=== PATIENT | female | born 1950 | race Caucasian/White ===

== ENCOUNTER 2023-10-18 16:07 | Inpatient (IN) | payer MEDICARE, SELFPAY ==
--- NOTE | ~2023-10-18 | XR_ITS ---
EXAMINATION: XR chest 2V DATE: 10/18/2023 16:44 INDICATION: Chest pain. TECHNIQUE: Frontal and lateral views of the chest were obtained. COMPARISON: Chest 2 views 08/28/2013, chest CT 12/05/2017 FINDINGS: There is a 13 mm nodule in left upper lobe, stable from 12/05/2017, likely benign. There is no pneumonia, pleural effusion, or pneumothorax. The heart size is normal. IMPRESSION: 1. No acute cardiopulmonary disease. Reviewed, dictated and finalized at location A. ATION CONSULTANT
--- NOTE | 2023-10-18 16:10 | ECG_ITS ---
Measurements Intervals [place] Rate: 70 P: 40 ME: 172 QRS: 33 QRSD: 85 T: 74 QT: 402 QTc: 434 Interpretive Statements SINUS RHYTHM VOLTAGE CRITERIA FOR LVH ANTEROSEPTAL INFARCT, AGE INDETERMINATE ABNORMAL ECG NO PREVIOUS ECG AVAILABLE FOR COMPARISON Electronically Signed On 10-18-2023 16:36:01 SHEET METAL FABRICATOR by Neil Felix D.O.
[2023-10-18 16:29] VITALS: BP 157/64; PULSE 68; RESP 18; TEMP 36.7; O2SAT 100
[2023-10-18 16:46] LABS: Basophils Absolute Auto 0.1 K/mm3 (0.0-0.1); Basophils Percent Auto 0.8 % (0.2-1.2); Eosinophils Absolute Auto 0.3 K/mm3 (0-0.3); Eosinophils Percent Auto 2.8 % (0-4.4); Hematocrit 44.3 % (37.0-47.0); Hemoglobin 14.6 g/dL (12.0-15.0); Immature Granulocyte Absolute 0.04 K/mm3 (0.00-0.031); Immature Granulocyte Percent A 0.4 % (0-0.5); Lymphocytes Percent Auto 16.7 % (18.3-44.2); Mean Corpuscular Hemoglobin 29.4 pg (26-34); Mean Corpuscular Volume 89.3 fl (80-100); Mean Platelet Volume 10.4 fl (7.4-10.4); Monocytes Absolute Auto 0.6 K/mm3 (0.1-0.6); Monocytes Percent Auto 6.8 % (2.6-8.5); Neutrophils Absolute Auto 6.5 K/mm3 (1.3-6.7); Neutrophils Percent Auto 72.5 % (45.5-73.1); Platelet Count Result 241 k/mm3 (150-375); Red Blood Count 4.96 M/mm3 (4.2-5.4); Red Cell Distribution Width 13.6 % (11.5-14.5)
[2023-10-18 16:56] LABS: Alanine Aminotransferase 12 U/L (6-35); Albumin Level 4.2 g/dL (3.5-5.1); Alkaline Phosphatase 73 U/L (38-126); Anion Gap 10 mmol/L (8-16); Aspartate Amino Transferase 19 U/L (14-36); Bilirubin,Total 0.5 mg/dL (0.2-1.3); Blood Urea Nitrogen 18 mg/dL (7-17); Calcium 9.7 mg/dL (8.4-10.2); Carbon Dioxide 22 mmol/L (22-30); Chloride 104 mmol/L (98-107); Estimated Glomerular Filt Rate > 60; Glucose 247 mg/dL (65-110); Lipase 383 U/L (23-300); Potassium 4.6 mmol/L (3.4-5.0); Sodium 136 mmol/L (137-145)
[2023-10-18 16:57] LABS: INR 0.9; Prothrombin Time 12.3 Seconds (11.1-14.7)
[2023-10-18 16:58] LABS: Partial Thromboplastin Time 29.8 SECONDS (22.3-36.8)
[2023-10-18 17:11] LABS: Troponin I 0.061 ng/mL (0.000-0.034)
[2023-10-18 19:57] LABS: Troponin I 0.066 ng/mL (0.000-0.034)
--- NOTE | 2023-10-18 19:58 | ECG_ITS ---
Measurements Intervals [place] Rate: 62 P: 34 WA: 174 QRS: 17 QRSD: 86 T: 67 QT: 435 QTc: 443 Interpretive Statements SINUS RHYTHM LEFT VENTRICULAR HYPERTROPHY WITH ST-T CHANGE CONSIDER ANTEROSEPTAL INFARCT, AGE INDETERMINATE CONSIDER INFERIOR INFARCT, AGE INDETERMINATE ABNORMAL ECG COMPARED TO ECG 10/18/2023 16:22:54 NO SIGNIFICANT CHANGES Electronically Signed On 10-18-2023 20:21:04 ALARM INSTALLATION TECHNICIAN by Neil Felix D.O.
[2023-10-18 20:17] VITALS: BP 186/82; PULSE 61; PULSE 63; RESP 18; O2SAT 98
--- NOTE | 2023-10-18 22:16 | ECG_ITS ---
Measurements Intervals [place] Rate: 61 P: 33 VA: 181 QRS: 37 QRSD: 90 T: 74 QT: 451 QTc: 457 Interpretive Statements SINUS RHYTHM CONSIDER ANTERIOR INFARCT, AGE INDETERMINATE BORDERLINE ST-T WAVE ABNORMALITY- HIGH LATERAL LEADS ABNORMAL ECG COMPARED TO ECG 10/18/2023 20:01:34 NO SIGNIFICANT CHANGES Electronically Signed On 10-19-2023 6:00:45 BLIND STITCH MACHINE OPERATOR by Neil Felix D.O.
--- NOTE | 2023-10-18 22:41 | ED.GENADULT ---
HPI - General Adult General Chief complaint: Chest Pain Stated complaint: chest pain Time Seen by Provider: 10/18/23 19:58 History of Present Illness HPI narrative: this is a 73-year-old female presenting ED with chief complaint of chest pain. Patient has been having intermittent heaviness across her chest shoulders into her arms for the last 2 weeks. It is constant, improves with rest and worsened by exertion. Patient was seen by her primary care physician earlier today and when she relates her symptoms they got an EKG they were instructed by her garbage collector supervisor Dr. Chua at [facility] to go to the closest emergency room. Patient denies diaphoresis nausea vomiting, lower extremity edema shortness of breath fever chills or cough. Related Data Home Medications Medication Instructions Recorded Confirmed Scemblix 10/18/23 amlodipine 10 mg tablet 10 mg PO HS 10/18/23 10/18/23 empagliflozin 25 mg tablet 25 mg PO DAILY 10/18/23 10/18/23 (Jardiance) glimepiride 4 mg tablet 4 mg PO DAILY 10/18/23 10/18/23 insulin glargine 100 unit/mL (3 25 unit subcut HS 10/18/23 10/18/23 mL) subcutaneous pen (Lantus Solostar U-100 Insulin) levothyroxine 25 mcg tablet 25 mcg PO DAILY 10/18/23 10/18/23 levothyroxine 25 mcg tablet 50 mcg PO MEJIA 10/18/23 10/18/23 losartan 100 mg tablet 100 mg PO DAILY 10/18/23 10/18/23 nadolol 40 mg tablet 80 mg PO DAILY 10/18/23 10/18/23 omeprazole 40 mg capsule,delayed 40 mg PO DAILY 10/18/23 10/18/23 release pen needle, diabetic 32 gauge x 10/18/23 10/18/23 5/32 (BD Gina 2nd Gen Pen Needle) Allergies Allergy/AdvReac Type Severity Reaction Status Date / Time bupropion Allergy Mild HIVES Verified 10/18/23 20:29 Cephalosporins Allergy Mild HIVES Verified 10/18/23 20:29 clavulanic acid Allergy Mild HIVES Verified 10/18/23 20:29 iron Allergy Mild HIVES Verified 10/18/23 20:29 Penicillins Allergy Mild HIVES Verified 10/18/23 20:29 Quinolones Allergy Mild TONGUE Verified 10/18/23 20:29 SWELLS tetracycline Allergy Mild HEARTBURN Verified 10/18/23 20:29 cephalexin Allergy Unknown Unknown Verified 10/18/23 20:29 diclofenac Allergy Unknown Unknown Verified 10/18/23 20:29 metronidazole Allergy Unknown Unknown Verified 10/18/23 20:29 BETALACTAMASEIN Allergy Mild HIVES Uncoded 10/18/23 20:29 TERBINAFINE HCL Allergy Mild HIVES Uncoded 10/18/23 20:29 AMOXICILLIN TRIHYDRATE Allergy Unknown HIVES Uncoded 10/18/23 20:29 [facility] Past Medical History Medical History CHF (congestive heart failure) CML (chronic myelocytic leukemia) Diabetes HTN (hypertension) Exam Narrative: APPEARANCE: No apparent distress. Head: atraumatic. EYES: EOMI, NOSE: Atraumatic NECK: Trachea midline RESPIRATORY: No increased rate of breathing, CTAB CARDIOVASCULAR: RRR, no peripheral edema ABDOMINAL: Non-distended MUSCULOSKELETAl: No obvious deformities NEURO: Alert. Moving 4/4 extremities SKIN:: Warm, dry. Normal color PSYCHIATRIC: Normal affect Course Vital Signs Vital signs: Vital Signs Temperature 98.1 F 10/18/23 16:29 Pulse Rate 68 10/18/23 16:29 Respiratory Rate 18 10/18/23 16:29 Blood Pressure 157/64 H 10/18/23 16:29 Pulse Oximetry 100 10/18/23 16:29 Oxygen Delivery Room Air 10/18/23 16:29 Temperature 98.1 F 10/18/23 16:29 Pulse Rate 61 10/18/23 20:17 Respiratory Rate 18 10/18/23 20:17 Blood Pressure 186/82 H 10/18/23 20:17 Pulse Oximetry 98 10/18/23 20:17 Oxygen Delivery Room Air 10/18/23 16:29 Medical Decision Making MDM Narrative Medical decision making narrative: -Course: 73-year-old female presenting with 2 weeks chest heaviness that radiates to her arms. Troponins elevated at 0.061 x2. EKG showed nonspecific T-wave abnormalities in the anterior septal leads. patient given Lovenox. patient will be admitted to the hospital for cardiac evaluation. -DDX includes but is not limited
--- NOTE | 2023-10-18 22:49 | PM.IMHP ---
H&P: HPI History of Present Illness Date/Time: 10/18/23 22:49 Chief Complaint: Chest pain Narrative: This is a 73-year-old female with past medical history significant for hypertension, type diabetes mellitus, hypothyroidism, CML, congestive heart failure. Patient presents to the emergency room via EMS had been in to see her primary care physician after episode of chest discomfort with dyspepsia, heaviness of bilateral upper extremities. At primary care physician's office an EKG showed changes when compared to prior EKGs EMS was called and patient was brought to the emergency room for evaluation. At the time of my visit patient denies any pain. Denies any fevers, rigors, chills, nausea, vomiting, cough, leg swelling, lightheadedness, syncope or near-syncope. Has been in her usual state of health up until this moment. Patient has been placed in observation for further evaluation management and treatment. EXAMINATION: XR chest 2V DATE: 10/18/2023 16:44 INDICATION: Chest pain. TECHNIQUE: Frontal and lateral views of the chest were obtained. COMPARISON: Chest 2 views 08/28/2013, chest CT 12/05/2017 FINDINGS: There is a 13 mm nodule in left upper lobe, stable from 12/05/2017, likely benign. There is no pneumonia, pleural effusion, or pneumothorax. The heart size is normal. IMPRESSION: 1. No acute cardiopulmonary disease. Review of Systems Review of Systems: Chest discomfort Constitutional: Constitutional: Denies chills, Denies fever(s) and Reports weakness Eyes: Eyes: Denies change in vision ENT: Denies dysphagia and Denies odynophagia Cardiovascular: Cardiovascular: Reports chest pain, Denies radiating jaw, neck or arm pain and Denies palpitations Respiratory: Respiratory: Denies cough and Denies dyspnea Gastrointestinal: Gastrointestinal: Denies abdominal pain, Reports dyspepsia and Reports nausea Genitourinary: Genitourinary: Denies dysuria Musculoskeletal: Musculoskeletal: Reports muscle weakness Integumentary/Breasts: Skin/Breast: Denies rash Neurologic: Denies focal weakness and Denies Sensory deficit (Neuro) Psychiatric: Psychiatric: Reports no additional psychiatric complaints and Reports as per HPI Endocrine: Endocrine: Denies cold intolerance, Denies fatigue, Denies flushing, Denies heat intolerance, Denies polyphagia, Denies polydipsia and Denies palpitations Hematologic/Lymphatic: Hematologic/Lymphatic: Reports no additional hematologic/lymphatic complaints and Reports as per HPI Allergic/Immunologic: Allergic/Immunologic: Reports no additional allergic/immunologic complaints and Reports as per HPI [facility] Past Medical History Medical History CHF (congestive heart failure) CML (chronic myelocytic leukemia) Diabetes HTN (hypertension) Meds Home Medications and Allergies Home Medications Medication Instructions Recorded Confirmed Type Scemblix 10/18/23 History amlodipine 10 mg tablet 10 mg PO HS 10/18/23 10/18/23 History empagliflozin 25 mg tablet 25 mg PO DAILY 10/18/23 10/18/23 History (Jardiance) glimepiride 4 mg tablet 4 mg PO DAILY 10/18/23 10/18/23 History insulin glargine 100 unit/mL (3 25 unit subcut HS 10/18/23 10/18/23 History mL) subcutaneous pen (Lantus Solostar U-100 Insulin) levothyroxine 25 mcg tablet 25 mcg PO DAILY 10/18/23 10/18/23 History levothyroxine 25 mcg tablet 50 mcg PO MEJIA 10/18/23 10/18/23 History losartan 100 mg tablet 100 mg PO DAILY 10/18/23 10/18/23 History nadolol 40 mg tablet 80 mg PO DAILY 10/18/23 10/18/23 History omeprazole 40 mg capsule,delayed 40 mg PO DAILY 10/18/23 10/18/23 History release pen needle, diabetic 32 gauge x 10/18/23 10/18/23 History 32 (BD Gina 2nd Gen Pen Needle) Allergies Allergy/AdvReac Type Severity Reaction Status Date / Time bupropion Allergy Mild HIVES Verified 10/18/23 20:29 Cephalosporins Allergy Mild HIVES Verified 10/18/23 20
[2023-10-18 23:19] LABS: Troponin I 0.071 ng/mL (0.000-0.034)
[2023-10-18] MEDS: ENOXAPARIN 100 MG/ML SYRINGE SUB-Q (23:29)
[2023-10-18 23:30] VITALS: BP 150/80; PULSE 66; RESP 18; O2SAT 99
[2023-10-19] VITALS (14 sets, daily range): BP systolic 97–174; BP diastolic 43–91; PULSE 63–72; RESP 9–19; TEMP 36.3–36.7; O2SAT 96–100; BMI 36.6
--- NOTE | 2023-10-19 | ECHO_ITS ---
Patient Info Name: Julianna Adan Age: 73 years : 1950 Gender: Female Ht: 65 in Wt: 222 lbs BSA: 2.19 m2 HR: 68 bpm BP: 122 / 54 mmHg Heart Rhythm: Sinus Rhythm Technical Quality: Good Exam Date: 10/19/2023 3:01 PM Exam Location: Echo Lab Patient Status: Inpatient Admit Date: 10/18/2023 Staff Ordering Physician: Isamar Jacob MD Civil Clerk: Bere Bowen RDCS Attending Provider: Isamar Jacob MD Referring Physician: Nidia ALLEN; Exam Type: CA echo doppler color flow Study Info Indications - chest pain Complete two-dimensional, color flow and Doppler transthoracic echocardiogram is performed. Summary 1. Left ventricular chamber dimension is normal. 2. Left ventricular systolic function is normal, estimated at 65-70%. 3. There is mildly increased left ventricular wall thickness. 4. The left ventricular diastolic function is grade I diastolic dysfunction. 5. Right ventricular systolic function is normal. 6. There is trace mitral valve regurgitation. 7. There is trace tricuspid valve regurgitation. Left Ventricle Left ventricular chamber dimension is normal. Left ventricular systolic function is normal, estimated at 65-70%. There is mildly increased left ventricular wall thickness. The left ventricular diastolic function is grade I diastolic dysfunction. Right Ventricle Right ventricular chamber dimension is normal. Right ventricular systolic function is normal. Left Atria Left atrial chamber dimension is normal. Right Atria Right atrial chamber dimension is normal. Atrial Septum Intact interatrial septum visualized by color flow imaging. Aortic Valve The aortic valve is not well visualized. There is no aortic valve stenosis. There is no aortic valve regurgitation. There is mild aortic valve calcification. Pulmonic Valve The pulmonic valve is not well visualized. Mitral Valve There is trace mitral valve regurgitation. The mitral valve annulus is mildly calcified. Tricuspid Valve There is trace tricuspid valve regurgitation. Pericardium/Pleural There is no pericardial effusion. Inferior Vena Cava Normal inferior vena cava with >50% collapse upon inspiration consistent with normal right atrial pressure, 3 mmHg. Left Ventricular Outflow Tract Name Value Normal LVOT 2D LVOT Diameter 1.9 cm LVOT Doppler LVOT Peak Gradient 3 mmHg LVOT Mean Gradient 2 mmHg LVOT VTI 23 cm LVOT VTI/AV VTI Ratio 0.7 LVOT Stroke Volume 64 ml LVOT CO 4.9 l/min LVOT CI 2.2 l/min/m2 Pulmonic Valve Name Value Normal RVOT Doppler RVOT Peak Gradient 3 mmHg PV Doppler PV Peak Gradient 4 mmHg Mi
[2023-10-19 07:18] LABS: Influenza A QL RT-PCR Negative (Negative); Influenza B QL RT-PCR Negative (Negative); RSV RNA, RT-PCR Negative (Negative); SARS-CoV-2 RNA PCR Negative (Negative)
[2023-10-19] MEDS: LOSARTAN POTASSIUM 100 MG TABLET PO (09:23)
[2023-10-19] MEDS: LEVOTHYROXINE SODIUM 25 MCG TABLET PO (09:23)
[2023-10-19] MEDS: EMPAGLIFLOZIN 25 MG TABLET PO (09:24)
[2023-10-19] MEDS: nadoloL 20 MG TABLET 80 MG PO (09:24)
[2023-10-19] MEDS: PANTOPRAZOLE 40 MG TABLET PO ×2 (09:24→20:50)
[2023-10-19 09:42] LABS: Glucose Point of Care 152 mg/dl (65-105)
--- NOTE | 2023-10-19 13:45 | PM.IMPN ---
Progress Note: A&P Assessment and Plan (1) Chest pain: Code(s): R07.9 - Chest pain, unspecified Status: Acute Assessment and Plan: Patient presents with complaints chest pain. She has risk factors with diabetes and hypertension. She is an ex-smoker. EKG on admission shows normal sinus rhythm with age indeterminate possible anterior septal infarct. Repeat EKG showing no change. Troponin climbed to 0.071. She received ASA from her PCP prior to admission. She is allergic to diclofenac. Continue ASA. Continue betablocker Received Lovenox therapeutic dose x1 Echo ordered. Check lipid. repeat lipase Cardiology consulted. Chest pain free now. Stress vs LHC (2) Elevated troponin: Code(s): R79.89 - Other specified abnormal findings of blood chemistry Status: Acute Assessment and Plan: As above (3) Diabetes: Code(s): E11.9 - Type 2 diabetes mellitus without complications Status: Acute Assessment and Plan: The patient's blood glucose was reviewed on 10/19 Glucose elevated on admission. Continue AccuCheks covering with sliding scale. Hypoglycemia protocol available as needed. Continue current medications. (4) HTN (hypertension): Code(s): I10 - Essential (primary) hypertension Status: Acute Assessment and Plan: Patient's blood pressure was reviewed on 10/19 Blood pressure remains reasonably well controlled. Will continue current medications. (5) CML (chronic myelocytic leukemia): Code(s): C92.10 - Chronic myeloid leukemia, BCR/ABL-positive, not having achieved remission Status: Acute Assessment and Plan: Stable Plan DVT prophylaxis - lovenox Code status - full Subjective Date/time seen: 10/19/23 13:45 Interval history: 73yo female with CHF, CML, DM and HTN here for chest pain. She has a hx of tobacco use. Assuming care. Chart reviewed. Did not sleep well last night. She was in the ER overnight. No chest pain. Shortness of breath. Her last stress test was greater than 10 years ago. No new medications. No fever or chills. She has been having this chest pain for about 10 days. It comes at rest and with exertion. Starts in her back and radiates to both upper arms and feels ?heavy?. She has never had this before. She has tingling in her flanks bilaterally. Exam Narrative: AF 98.1 147/88 64 16 99% ra Gen - NARD Chest - CTA bilaterally, nml RR CV - RRR S1/S2 Abd - Soft, NT/ND, Positive BS Ext - No pedal edema Neuro - Alert and oriented. Nonfocal exam. Psych - Nml mood and affect Skin - Warm and dry Objective Data Vital Signs Vital Signs: Vital Signs - 24 hr 10/18/23 16:29 10/18/23 20:17 10/18/23 20:17 Temperature 98.1 F Pulse Rate 68 63 61 Respiratory Rate 18 18 Blood Pressure 157/64 H 186/82 H Pulse Oximetry 100 98 Oxygen Delivery Room Air 10/18/23 23:30 10/19/23 00:02 10/19/23 04:02 Temperature Pulse Rate 66 65 68 Respiratory Rate 18 15 19 Blood Pressure 150/80 H 97/77 L 122/54 L Pulse Oximetry 99 98 99 Oxygen Delivery 10/19/23 09:24 10/19/23 08:01 10/19/23 10:02 Temperature Pulse Rate 66 63 65 Respiratory Rate 17 9 L Blood Pressure 159/63 H 133/70 Pulse Oximetry 97 96 Oxygen Delivery 10/19/23 11:43 10/19/23 11:44 Temperature Pulse Rate 68 64 Respiratory Rate 18 16 Blood Pressure 150/84 H 147/88 H Pulse Oximetry 100 99 Oxygen Delivery Meds/Results Medications: Active Medications Generic Name Dose Route Start Last Admin Trade Name Freq PRN Reason Stop Dose Admin Amlodipine Besylate 10 mg 10/19/23 21:00 Amlodipine Besylate 5 Mg Tablet PO HS VIKY Empagliflozin 25 mg 10/19/23 09:00 10/19/23 09:24 Empagliflozin 25 Mg Tablet PO 25 mg DAILY VIKY Administration Insulin Glargine 25 units 10/19/23 21:00 Insulin Glargine (*Bkc) 100 Units/Ml SUB-Q HS VIKY Levothyroxine Sodium 25
--- NOTE | 2023-10-19 15:44 | PC.NURSE ---
Dinner Tray ordered
[2023-10-19 15:48] LABS: Glucose Point of Care 127 mg/dl (65-105)
[2023-10-19] MEDS: ASPIRIN 81 MG CHEWABLE TABLET PO (15:49)
[2023-10-19] MEDS: ENOXAPARIN 40 MG/0.4 ML SYRINGE SUB-Q (16:07)
--- NOTE | 2023-10-19 18:40 | ADMGEN ---
This patient, Julianna Adna, was admitted to IMU Room 206-02. Patient/family oriented to hospital policies and general routines including ID bracelet, bed and alarms, visiting hours, pain management, procedures, bathroom and other care routines, personal items, smoking policy, room service/diet, and visiting hours. Information on how to activate the Rapid Response Team has been discussed. Patient/Family are encouraged to report perceived risks to care and to ask questions if they do not understand what they are told or what they should do.
[2023-10-19 20:41] LABS: Glucose Point of Care 174 mg/dl (65-105)
[2023-10-19] MEDS: amLODIPine BESYLATE 5 MG TABLET 10 MG PO (20:49)
[2023-10-19] MEDS: INSULIN GLARGINE (*BKC) 100 UNITS/ML 25 UNITS SUB-Q (20:49)
[2023-10-20] VITALS (9 sets, daily range): BP systolic 133–148; BP diastolic 53–62; PULSE 53–65; RESP 12–16; TEMP 36.2–36.6; O2SAT 92–99
[2023-10-20 05:36] LABS: Basophils Absolute Auto 0.1 K/mm3 (0.0-0.1); Basophils Percent Auto 1.1 % (0.2-1.2); Eosinophils Absolute Auto 0.2 K/mm3 (0-0.3); Eosinophils Percent Auto 3.6 % (0-4.4); Hematocrit 40.4 % (37.0-47.0); Immature Granulocyte Absolute 0.04 K/mm3 (0.00-0.031); Immature Granulocyte Percent A 0.7 % (0-0.5); Lymphocytes Absolute Auto 1.83 K/mm3 (0.9-3.2); Lymphocytes Percent Auto 29.9 % (18.3-44.2); Mean Corpuscular HGB Conc 32.2 g/dl (32-36); Mean Corpuscular Hemoglobin 29.3 pg (26-34); Mean Platelet Volume 10.6 fl (7.4-10.4); Monocytes Absolute Auto 0.6 K/mm3 (0.1-0.6); Monocytes Percent Auto 9.5 % (2.6-8.5); Neutrophils Absolute Auto 3.4 K/mm3 (1.3-6.7); Neutrophils Percent Auto 55.2 % (45.5-73.1); Platelet Count Result 204 k/mm3 (150-375); Red Blood Count 4.44 M/mm3 (4.2-5.4); Red Cell Distribution Width 13.3 % (11.5-14.5); White Blood Count 6.1 K/mm3 (4.5-10.0)
[2023-10-20 05:50] LABS: Albumin Level 3.5 g/dL (3.5-5.1); Anion Gap 8 mmol/L (8-16); Blood Urea Nitrogen 18 mg/dL (7-17); Calcium 9.1 mg/dL (8.4-10.2); Carbon Dioxide 23 mmol/L (22-30); Chloride 105 mmol/L (98-107); Cholesterol 215 mg/dL (0-200); Estimated CRCL calculation 57 ml/min; Estimated Glomerular Filt Rate > 60; Glucose 111 mg/dL (65-110); HDL Direct 24 mg/dL; Lipase 228 U/L (23-300); Magnesium 2.2 mg/dL (1.6-2.3); Phosphorus 4.1 mg/dL (2.5-4.5); Potassium 3.8 mmol/L (3.4-5.0); Sodium 136 mmol/L (137-145); Triglycerides 241 mg/dL (<150)
[2023-10-20 06:01] LABS: LDL Cholesterol Direct 136 mg/dL
[2023-10-20] MEDS: LEVOTHYROXINE SODIUM 25 MCG TABLET PO (06:02)
[2023-10-20 08:05] LABS: Glucose Point of Care 117 mg/dl (65-105)
[2023-10-20] MEDS: nadoloL 20 MG TABLET 80 MG PO (08:42)
[2023-10-20] MEDS: ASPIRIN 81 MG CHEWABLE TABLET PO (08:43)
[2023-10-20] MEDS: LOSARTAN POTASSIUM 100 MG TABLET PO (08:44)
[2023-10-20] MEDS: EMPAGLIFLOZIN 25 MG TABLET PO (08:44)
[2023-10-20] MEDS: PANTOPRAZOLE 40 MG TABLET PO (08:44)
[2023-10-20] MEDS: ATORVASTATIN 40 MG TABLET PO (08:44)
[2023-10-20] MEDS: ENOXAPARIN 40 MG/0.4 ML SYRINGE SUB-Q (08:45)
[2023-10-20 08:48] LABS: Hemoglobin A1C 8.7 % (<5.7)
--- NOTE | 2023-10-20 09:12 | PHAR ---
The patient's home med of Scemblix 40mg (asciminib) has been verified. *chemotherapy*
--- NOTE | 2023-10-20 10:34 | PM.CNCAR ---
Assessment and Plan Assessment and plan (1) NSTEMI (non-ST elevated myocardial infarction): Code(s): I21.4 - Non-ST elevation (NSTEMI) myocardial infarction Status: Acute Assessment and Plan: Although her symptoms are atypical, she does have elevation in troponin levels and does have several risk factors for heart disease. EKGs with STTW abnormality in the anterolateral leads, cannot rule out septal infarct. Recommended cardiac catheterization. Discussed indication for the procedure, procedure details, risks vs benefits, post procedure care. 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 Discussed with Dr. Deng to see if transfer to [facility] is a possibility. If emergent/urgent cardiac cath is needed, then would be more than happy to perform here. Continue ASA, statin. (2) Diabetes: Code(s): E11.9 - Type 2 diabetes mellitus without complications Status: Acute Assessment and Plan: Management as per primary team. (3) HTN (hypertension): Code(s): I10 - Essential (primary) hypertension Status: Acute Assessment and Plan: Stable. Plan Recommendations and plan discussed with Hospitalist, Dr. Deng. History of Present Illness History of Present Illness Consult date/time: 10/20/23 10:34 Requesting physician: Delvin Deng MD Consult reason: chest pain Reason For Visit: Elevated Trop Narrative: We are consulted for NSTEMI. This is a 73 year old female with type 2 diabetes mellitus, hypertension, hypothyroidism, CML, congestive heart failure who presented from her PCP's office for bilateral arm pain/heaviness. Patient reports that her manager pricing is Dr. Chua at [facility]. She was seen at her PCP's office and had reported a 2 week history of bilateral arm pain/heaviness that would radiate underneath her breasts, and into the shoulders. It would improve with a heating pad. Does report worsening of symptoms with exertion. Patient denies any chest pain. Patient was sent from her PCP office to the ER. EKGs obtained in the ER show sinus rhythm, cannot rule out anteroseptal infarct. No prior EKGs available for comparison. Troponins of 0.061, 0.066, 0.071. Echocardiogram done yesterday shows LVEF 65-70%, grade 1 diastolic dysfunction, no significant valvular disease. We do not have any records from her primary manager pricing's office here. Review of Systems Review of Systems: All systems reviewed & are unremarkable except as noted in HPI and below (HPI) [facility] Past Medical History Medical History CHF (congestive heart failure) CML (chronic myelocytic leukemia) Diabetes HTN (hypertension) Family History Family History Sibling Acute myocardial infarction Congestive heart failure Diabetes mellitus Father Diabetes mellitus Mother Diabetes mellitus Hypertension Social History Social History Smoking packs per day: 2 Smoking cigarettes per day: 40.0 Years smoked: 40 Smoking pack-years: 80.00 Smoking status: Former smoker Tobacco type: cigarettes Do You Feel Safe in your Home?: Yes Lack of Transportation: No Lack of Food: Never True Current Housing: I Have Housing Concerned About Future Housing: No Difficulty Paying Gas/Electric Bills: No Difficulty Paying for Meds: No Currently Unemployed: No Education: Decline to Answer Difficulty w/ Childcare or Family Care: No Spiritual care concerns: No Meds Home Medications and Allergies Home Medications Medication Instructions Recorded Confirmed Type Scemblix 10/18/23 History amlodipine 10 mg tablet 10 mg PO HS 10/18/23 0
[2023-10-20 11:32] LABS: Glucose Point of Care 170 mg/dl (65-105)
--- NOTE | 2023-10-20 13:37 | PC.NURSE ---
On 10/20/23, the student, [ Iglesia Jimenez], provided care and completed [facility] documentation on this patient. I have reviewed the student's documentation and agree with the findings.
--- NOTE | 2023-10-20 14:23 | PM.TDS ---
Transfer Discharge Sum: Prov Provider Date of admission: 10/18/23 22:53 Primary care physician: Maxwell Lee, Admitting clinician: Isamar Jacob MD Consults: 10/19/23 Consult to Physician Routine Comment: Consulting Provider: Perla Pantoja spa supervisor/MD group to consult: Cardiology Reason for consultation: chest pain Has provider been notified: Yes Receiving physician/facility: [facility]. 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, BCR/ABL-positive, not having achieved remission Status: Acute (5) Hyperlipidemia: Code(s): E78.5 - Hyperlipidemia, unspecified Status: Acute Transfer Discharge Sum: Med Medications Active and Home Medications: Home Medications Scemblix 10/18/23 [History] amlodipine 10 mg tablet 10 mg PO HS 10/18/23 [History Confirmed 10/18/23] empagliflozin 25 mg tablet (Jardiance) 25 mg PO DAILY 10/18/23 [History Confirmed 10/18/23] glimepiride 4 mg tablet 4 mg PO DAILY 10/18/23 [History Confirmed 10/18/23] insulin glargine 100 unit/mL (3 mL) subcutaneous pen (Lantus Solostar U-100 Insulin) 25 unit subcut HS 10/18/23 [History Confirmed 10/18/23] levothyroxine 25 mcg tablet 25 mcg PO DAILY 10/18/23 [History Confirmed 10/18/23] levothyroxine 25 mcg tablet 50 mcg PO MEJIA 10/18/23 [History Confirmed 10/18/23] losartan 100 mg tablet 100 mg PO DAILY 10/18/23 [History Confirmed 10/18/23] nadolol 40 mg tablet 80 mg PO DAILY 10/18/23 [History Confirmed 10/18/23] omeprazole 40 mg capsule,delayed release 40 mg PO DAILY 10/18/23 [History Confirmed 10/18/23] pen needle, diabetic 32 gauge x 5/32 (BD Gina 2nd Gen Pen Needle) 10/18/23 [History Confirmed 10/18/23] All Day Allergy (cetirizine) 10 mg PO DAILY Allergies 10/19/23 [History Confirmed 10/19/23] Active Medications Amlodipine Besylate (Amlodipine Besylate 5 Mg Tablet) 10 mg PO [facility] Last Admin: 10/19/23 20:49 Dose: 10 mg Aspirin (Aspirin 81 Mg Chewable Tablet) 81 mg PO DAILY@0800 [facility] Last Admin: 10/20/23 08:43 Dose: 81 mg Atorvastatin Calcium (Atorvastatin 40 Mg Tablet) 40 mg PO DAILY [facility] Last Admin: 10/20/23 08:44 Dose: 40 mg Dextrose (Dextrose 50% 25 Gm/50 Ml Syringe) 12.5 gm IV PUSH PRN PRN; Protocol PRN Reason: Hypoglycemia Empagliflozin (Empagliflozin 25 Mg Tablet) 25 mg PO DAILY [facility] Last Admin: 10/20/23 08:44 Dose: 25 mg Enoxaparin Sodium (Enoxaparin 40 Mg/0.4 Ml Syringe) 40 mg SUB-Q DAILY [facility] Last Admin: 10/20/23 08:45 Dose: 40 mg Glucagon (Glucagon For Inj 1 Mg Vial) 1 mg IM PRN PRN; Protocol PRN Reason: Hypoglycemia Glucose (Glucose Oral Gel 15 Gm Of Glucse In 37.5 Gm Tube) 15 gm PO PRN PRN; Protocol PRN Reason: Hypoglycemia Dextrose (Dextrose 5% 1,000 Ml) 1,000 mls @ 100 mls/hr IVPB PRN PRN; Protocol PRN Reason: Hypoglycemia Insulin Aspart (Insulin Aspart (*Bkc) 100 Units/Ml) 4 - 8 units SUB-Q TIDWM [facility]; Protocol Last Admin: 10/20/23 11:26 Dose: Not Given Insulin Glargine (Insulin Glargine (*Bkc) 100 Units/Ml) 25 units SUB-Q HS [facility] Last Admin: 10/19/23 20:49 Dose: 25 units Levothyroxine Sodium (Levothyroxine Sodium 25 Mcg Tablet) 25 mcg PO [id number] [facility] Last Admin: 10/20/23 06:02 Dose: 25 mcg Levothyroxine Sodium (Levothyroxine Sodium 50 Mcg Tablet) 50 mcg PO Mejia@30 [facility] Losartan Potassium (Losartan Potassium 100 Mg Tablet) 100 mg PO DAILY [facility] Last Admin: 10/20/23 08:44 Dose: 100 mg
== END 2023-10-20 14:45 | disposition short-term general hospital (02) | DRG 281 ==
LOC: ANHED 22:52 → ANHIMU 23:47
PROVIDERS: Emergency Medicine; Admitting Provider Internal Medicine; Emergency Provider Emergency Medicine; PCP Internal Medicine; Visit Provider Internal Medicine
DX: I21.4 Non-ST elevation (NSTEMI) myocardial infarction (principal); C92.10 Chronic myeloid leukemia, BCR/ABL-positive, not having achieved remission; I11.0 Hypertensive heart disease with heart failure; I50.9 Heart failure, unspecified; E11.9 Type 2 diabetes mellitus without complications; Z20.822 Contact with and (suspected) exposure to COVID-19; Z79.4 Long term (current) use of insulin
CPT/HCPCS: 36415; 71046; 80053; 80061; 80069; 82948; 83036; 83690; 83735; 84443; 84484; 85025; 85610; 85730; 87637; 93005; 93306; 99285; A9270; J1650; J1815